=== PATIENT | female | born 1975 | race Hispanic/Latino ===

== ENCOUNTER 2017-02-25 13:05 | Emergency (ER) | payer MEDICARE, MEDICAID ==
[~2017-02-25] VITALS: Ht 157.5 cm; Wt 86.4 kg
[~2017-02-25 13:05] MED LIST: ALPR0.5T PO; AMOX-366 PO; BUPR100T6 PO; DOCU-41 PO; ESOM40CA41 PO; FERR325C PO; IBUP800T28 PO; LEVO125T2 PO; OXYB10TA PO; OXYC1TAB24 PO; PROZ20 PO
[2017-02-25 13:07] VITALS: BP 131/82; PULSE 94; RESP 16; O2SAT 97
[2017-02-25] MEDS ORDERED: AZEL6DRO6 TOPICAL (13:11)
--- NOTE | 2017-02-25 13:36 | ED.REPORT ---
HPI-Dental/Mouth Prob Date of Service February 25, 2017 ED Provider: Shaheed Joshua MD 42 year old female presents to the ER accompanied by her daughter complaining of a month of worsening left lower dental pain secondary to a cracked tooth. She was seen at [facility] last month and scheduled for repair vs extraction next month. Since that visit her pain has worsened, with notable swelling of the surrounding gums. Symptoms have been treated with Tylenol, which has ceased to be effective. Patient denies any chills, fever, and diaphoresis. Nursing Notes Stated Complaint: TOOTH PAIN Chief Complaint: Dental Nursing Notes Reviewed: Yes Allergies: Coded Allergies: Sulfa (Sulfonamide Antibiotics) (Verified Allergy, Intermediate, Rash, ) codeine (Verified Adverse Reaction, Intermediate, VOMITING, ITCHING, ) Scheduled Amoxicillin (Amoxicillin) 500 Mg Tablet 500 MG PO TID Bupropion (Wellbutrin) 100 Mg Tablet 150 MG PO TID Esomeprazole Magnesium (Nexium) 40 Mg Capsule.dr 40 MG PO DAILY Fluoxetine (Prozac) 20 Mg Cap 20 MG PO DAILY Levothyroxine (Synthroid) 125 Mcg Tablet 137 MCG PO DAILY TAKES 1.5 TABS MON AM; 1 TAB AM REST OF WEEK Oxybutynin Chloride ER (Oxybutynin Chloride ER) 10 Mg Tab.er.24 10 MG PO DAILY Scheduled PRN Alprazolam (Xanax) 0.5 Mg Tablet 0.5 MG PO DAILY PRN PRN For Anxiety Azelastine HCl (Azelastine HCl) 6 Ml Drops 1 DROP TOPICAL TID PRN PRN For Itching Ibuprofen (Ibuprofen) 800 Mg Tablet 800 MG PO TID PRN PRN For Pain General Time Seen by MD: 13:36 Chief Complaint Mouth pain, Tooth pain Hx Obtained From: Patient Arrived By: Walk-in Onset Occurred: More than a week ago... (1 month) Symptom Duration: Since onset Location: : Tooth lower L molar Quality: Painful Severity: Current: Moderate Severity: Maximum: Moderate Associated with: Denies: Chills, Fever Pertinent Negative: Pt denies other symptoms Similar Sx Previous: Yes Past Medical History Past Medical History Reports: Asthma Past Surgical History Reports: , Cholecystectomy Family History n/a Smoking History Never Smoker Social History Alcohol Use: "Social" Drug Use: Denies drug use Other Social History: Good social support Occupation stay at home mom Ambulatory Status Independent Review of Systems Constitutional: Denies: Chills, Fever Ears / Nose / Throat: Reports: Mouth pain, Toothache GI: Denies: Diarrhea, Nausea, Vomiting Complete sys rev & neg: except as marked. Skin: Denies Diaphoresis Physical Exam Initial Vital Signs Vital Signs (First) Date Time Temp Pulse Resp B/P Pulse Ox O2 Delivery O2 Flow Rate FiO2 02/25/17 13:07 36.2 94 16 131/82 97 Room Air Initial VS: Reviewed General/Constitutional: Well-developed, Well-nourished Head / Eyes: Atraumatic, Normocephalic Extremities: Vascular intact, Neuro intact, No swelling, No tenderness Skin: Warm, Dry, No cyanosis Neurologic: Alert, Oriented, Nonfocal Psychiatric: Mood/affect normal, Behavior normal, Normal thought content ENT: Airway patent, Mucous membranes moist, Tympanic membs NL Teeth #19 and #20 affected. Wide, open caries. 19 has multiple fillings, tender to percussion. No erosion. 20 has large erosions. No sign of abscess. Neck: Supple, No meningismus, Full range of motion, No adenopathy, No swelling , Non-tender, No masses Re-Eval/Medical Decision Re-Evaluation/Progress : Time of Eval: 13:41 Re-Evaluation/Progress Note: Discussed physical examination findings and plan to discharge. Patient is amenable to the plan. Return precautions given. All other questions addressed. Counseled Regarding: Diagnosis, Need for follow-up, When/why to return to ED Discharge & Departure Primary Impression: Tooth fracture Disposition: Home Discharge Condition All VS Reviewed: Yes Condition: Stable Patient Instructions: Toothache (ED) Additional Instructions: Take 800mg ibuprofen every 8 hours as prescribed. Take Penicillin as prescribed for 10 days. I suspect this will improve your pain significantly over the next 24 hours. Return to the ER if you develop new or worsening pain, fever, chills, sweats, nausea, vomiting, or any other concerning symptoms. Referrals: [facility]OPCP (PCP) [facility] Scribe Attestation Portions of this note were transcribed by Donn Alvarado. I, Dr. Joshua, personally performed the history, physical exam and medical decision-making; I reviewed and confirmed the accuracy of the information in the transcribed note. Signed by: Walter Mendoza, 02/25/2017 at 13:47 copies to: [facility] Shaheed Joshua MD February 25, 2017 13:36 DONN ALVARADO February 25, 2017 13:43
[2017-02-25] MEDS ORDERED: AMOX500T2 PO (13:48)
[2017-02-25] MEDS ORDERED: IBUP800T28 PO (13:50)
[2017-02-25 13:58] VITALS: BP 131/82; PULSE 94; RESP 16; O2SAT 97
== END 2017-02-25 13:59 | disposition home or self-care (01) ==
LOC: SED 13:05
DX: S02.5XXA Fracture of tooth (traumatic), initial encounter for closed fracture (principal); X58.XXXA Exposure to other specified factors, initial encounter; Y92.9 Unspecified place or not applicable; Y93.9 Activity, unspecified; Y99.9 Unspecified external cause status; J45.909 Unspecified asthma, uncomplicated; Z88.2 Allergy status to sulfonamides; Z88.5 Allergy status to narcotic agent